=== PATIENT | male | born 1935 | race Caucasian/White ===

== ENCOUNTER 2021-09-20 16:35 | Inpatient (IN) | payer OTHER ==
[~2021-09-20] VITALS: Ht 167.6 cm; Wt 83.9 kg
--- NOTE | 2021-09-20 16:49 | NUR ---
DEVONTE 89 FROM HOME C/O WITNESSED SYNCOPAL EPISODE. PER EMS NO HEAD INJUR "HE WAS JUST EATING SALAD THEN PASSED OUT WITNESSED BY THE SON" [id number]. THE PATIENT IS ALERT AND ORIENTED X4. IN ROOM AIR AND DENIES SOB. RESPIRATION REGULAR AND UNLABORED. ATTACHED TO THE MONITOR. WARM BLANKET PROVIDED FOR COMFORT. WILL CONTINUE TO MONITOR THE PATIENT.
[2021-09-20] MEDS ORDERED: IV NS 0.9% 500 ML BAG IV ONE (17:00)
[2021-09-20 17:12] LABS: BASOPHILS # (AUTO) 0.1 K/uL (0.0-0.2); BASOPHILS % (AUTO) 0.7 % (0.0-2.0); EOSINOPHILS % (AUTO) 2.1 % (0.0-6.0); HEMATOCRIT 33 % (39-51); HEMOGLOBIN 11.1 g/dL (13.5-17.5); LYMPHOCYTES # (AUTO) 2.2 K/uL (0.8-4.8); MEAN CORPUSCULAR HGB CONC 33 g/dl (31.0-36.0); MEAN CORPUSCULAR VOLUME 90 fL (80-96); MONOCYTES # (AUTO) 0.9 K/uL (0.1-1.30); MONOCYTES % (AUTO) 10.2 % (2.0-12.0); NEUTROPHILS # (AUTO) 5.5 K/uL (1.8-8.9); PLATELET COUNT (AUTO) 184 K/uL (150-450); RED BLOOD CELL COUNT(AUTO) 3.72 MIL/uL (4.5-6.0); WHITE BLOOD COUNT (AUTO) 8.9 K/uL (4.3-11.0)
--- NOTE | 2021-09-20 17:15 | NUR ---
THE PATIENT IS TAKEN TO CT [facility]IA [facility]
--- NOTE | 2021-09-20 17:18 | NUR ---
MOVE SHEET SUBMITTED AND CALLED FOR TELE BED.
--- NOTE | 2021-09-20 17:20 | NUR ---
THE PATIENT IS BACK FROM [facility]IA [facility]
[2021-09-20 17:31] LABS: CALCIUM, SERUM 8.9 mg/dL (8.5-10.1); CARBON DIOXIDE 20 mmol/L (21-32); CHLORIDE 104 mmol/L (98-107); CREATININE 1.9 mg/dL (0.6-1.3); GLUCOSE 103 mg/dL (74-106); POTASSIUM 4.8 mmol/L (3.5-5.1); SODIUM SERUM 135 mmol/L (136-145); UREA NITROGEN, BLOOD 75 mg/dL (7-18)
[2021-09-20 17:37] LABS: ALANINE AMINOTRANSFERASE 29 U/L (12-78); ALBUMIN 3.7 g/dL (3.4-5.0); ALKALINE PHOSPHATASE 74 U/L (46-116); ASPARTATE AMINOTRANSFERASE 40 U/L (15-37); BILIRUBIN,DIRECT 0.1 mg/dL (0.0-0.2); BILIRUBIN,TOTAL 0.4 mg/dL (0.2-1.0); TOTAL PROTEIN, SERUM 6.7 g/dL (6.4-8.2)
--- NOTE | 2021-09-20 18:03 | NUR ---
COVID ANTIGEN SWAB DONE AND SENT TO THE LAB
--- NOTE | 2021-09-20 18:31 | NUR ---
[facility] CALLED INSIDE TESTER PAGED.
[2021-09-20] MEDS ORDERED: ONDANSETRON HCL/PF 4 MG/2 ML VIAL IVP PRN (19:00)
[2021-09-20] MEDS ORDERED: ACETAMINOPHEN 325 MG TABLET PO PRN (19:00)
[2021-09-20] MEDS ORDERED: MORPHINE SULFATE INJ 2 MG/ML DISP.SYRIN IV PRN (19:00)
[2021-09-20] MEDS ORDERED: LABETALOL 20 MG/4 ML VIAL IV PRN (19:00)
--- NOTE | 2021-09-20 19:09 | NUR ---
US TECH AT PT'S BEDSIDE
--- NOTE | 2021-09-20 19:16 | NUR ---
REPORT GIVEN TO NURSE ADAME FOR MIGUEL
[2021-09-20] MEDS ORDERED: DEXTROSE 50%-WATER 50 ML DISP.SYRIN IV PRN (19:30)
[2021-09-20] MEDS ORDERED: INSULIN REGULAR, HUMAN 100 UNIT/ML 3 ML VIAL SQ PRN (19:30)
--- NOTE | 2021-09-20 19:54 | NUR ---
ASSIGNED TO 306-1
[2021-09-20 20:00] VITALS: BP 147/69
--- NOTE | 2021-09-20 20:02 | NUR ---
REPORT GIVEN TO FRANCISCO Bonner RN FOR MIGUEL
[2021-09-20] MEDS ORDERED: SITA100T PO (20:15)
[2021-09-20] MEDS ORDERED: GLIP10TA21 PO (20:15)
[2021-09-20] MEDS ORDERED: RAMI10CA69 PO (20:15)
[2021-09-20] MEDS ORDERED: METO25TA4 PO (20:15)
[2021-09-20] MEDS ORDERED: HYDR25TA4 PO (20:15)
[2021-09-20] MEDS ORDERED: METF-442 PO (20:15)
--- NOTE | 2021-09-20 20:36 | NUR ---
PT TRANSFERRED TO 3W VIA ACLS PROTOCOL. VSS. PT TOLERATED TRANSFER WELL.
[2021-09-20] MEDS: BLOOD SUGAR DIAGNOSTIC 1 EACH STRIP IN SCH (21:14)
[2021-09-20] MEDS: METOPROLOL TARTRATE 25 MG TABLET PO SCH (21:14)
[2021-09-20] MEDS: IV NS 0.9% 1,000 ML IV SCH (21:14)
[2021-09-20] MEDS: HEPARIN SODIUM, PORCINE 5000 UNITS/1 ML VIAL SQ SCH (21:15)
[2021-09-20] MEDS ORDERED: ATORVASTATIN 10 MG TABLET PO SCH (22:00)
[2021-09-21] VITALS: BP 105/51
[2021-09-21 04:00] VITALS: BP 111/50
[2021-09-21] MEDS: BLOOD SUGAR DIAGNOSTIC 1 EACH STRIP IN SCH ×2 (06:08→12:16)
--- NOTE | 2021-09-21 06:11 | NUR ---
VARNISH FILTERER NOTES AWAKE & RESPONSIVE. NOT IN ANY DISTRESS. NO SOB NOTED. DENIES ANY PAIN OR DISCOMFORT AT THIS TIME. ON TELE SB @ 58 WITH IV-HL PATENT & INTACT. MONITORED ACCORDINGLY. CALL LIGHT WITHIN REACH. BED IN LOWEST POSITION. SR UP X 3 WITH BED ALARM ON FOR SAFETY. WILL ENDORSE TO NEXT SHIFT.
[2021-09-21 06:40] LABS: BASOPHILS % (AUTO) 0.3 % (0.0-2.0); EOSINOPHILS % (AUTO) 3.4 % (0.0-6.0); HEMATOCRIT 30 % (39-51); HEMOGLOBIN 10.3 g/dL (13.5-17.5); LYMPHOCYTES # (AUTO) 1.6 K/uL (0.8-4.8); LYMPHOCYTES % (AUTO) 24.3 % (20.0-44.0); MEAN CORPUSCULAR HGB CONC 34 g/dl (31.0-36.0); MEAN CORPUSCULAR VOLUME 89 fL (80-96); MONOCYTES # (AUTO) 0.7 K/uL (0.1-1.30); MONOCYTES % (AUTO) 10.4 % (2.0-12.0); NEUTROPHILS # (AUTO) 4.2 K/uL (1.8-8.9); NEUTROPHILS % (AUTO) 61.6 % (43.0-81.0); PLATELET COUNT (AUTO) 170 K/uL (150-450); WHITE BLOOD COUNT (AUTO) 6.8 K/uL (4.3-11.0)
[2021-09-21 06:56] LABS: ALANINE AMINOTRANSFERASE 26 U/L (12-78); ALBUMIN 3.1 g/dL (3.4-5.0); ALKALINE PHOSPHATASE 63 U/L (46-116); ASPARTATE AMINOTRANSFERASE 33 U/L (15-37); BILIRUBIN,TOTAL 0.3 mg/dL (0.2-1.0); CALCIUM, SERUM 8.6 mg/dL (8.5-10.1); CARBON DIOXIDE 22 mmol/L (21-32); CHLORIDE 108 mmol/L (98-107); CREATININE 1.4 mg/dL (0.6-1.3); GLUCOSE 123 mg/dL (74-106); MAGNESIUM 1.7 mg/dL (1.8-2.4); POTASSIUM 4.1 mmol/L (3.5-5.1); SODIUM SERUM 141 mmol/L (136-145); UREA NITROGEN, BLOOD 60 mg/dL (7-18)
--- NOTE | 2021-09-21 07:52 | NUR ---
RN OPENING NOTE PATIENT RECEIVED IN BED, AO X 4, IN NO ACUTE DISTRESS NOTED. RESPIRATORY EVEN AND UNLABORED ON ROOM. SKIN IS WARM TO TOUCH, KEEP CLEAN/DRY, INTACT IV SITE. KEPT ELEVATED HOB FOR ENSURE AIRWAY AND ASPIRATION PRECAUTION, ALSO LOWEST POSITION OF THE BED, S/R UP X 2 FOR SAFETY, ALL SAFETY PRECAUTION APPLIED. CALL LIGHT WITHIN REACH, WILL CONTINUE TO MONITOR.
[2021-09-21 08:00] VITALS: BP 114/45
[2021-09-21] MEDS: IV NS 0.9% 1,000 ML IV SCH (08:47)
[2021-09-21 08:51] LABS: THYROID STIMULATING HORMONE 2.892 uIU/mL (0.358-3.74)
[2021-09-21] MEDS: METOPROLOL TARTRATE 25 MG TABLET PO SCH (08:55)
[2021-09-21] MEDS: HEPARIN SODIUM, PORCINE 5000 UNITS/1 ML VIAL SQ SCH (08:56)
[2021-09-21] MEDS ORDERED: glipiZIDE XL 10 MG TAB.OSM.24 PO SCH (09:00)
[2021-09-21] MEDS ORDERED: ASPIRIN EC 81 MG TABLET.DR PO SCH (09:00)
--- NOTE | 2021-09-21 09:40 | NUR ---
WOUND CARE CONSULT: PT PRESENTS WITH SOME DRY SCRATCHES/ABRASIONS ON ARMS AND LEGS, PRESENT ON ADMISSION.PT REFUSED TO TURN FOR FULL SKIN ASSESSMENT. CURRENT TAHMINA SCORE IS 20. WILL SEE PRN.
[2021-09-21] MEDS ORDERED: MAGNESIUM OXIDE 400 MG TABLET PO ONE (10:00)
[2021-09-21 12:00] VITALS: BP_SYST 106; BP_SYST 112; BP_SYST 120; BP_DIAS 49; BP_DIAS 51; BP_DIAS 52
== END 2021-09-21 14:30 | disposition home or self-care (01) | DRG 640 ==
LOC: ER 16:37 → TELE 19:59
PROVIDERS: ADMIT Internal Medicine; ATTEND Internal Medicine
DX: E86.0 Dehydration (principal); N17.0 Acute kidney failure with tubular necrosis; R55 Syncope and collapse; D64.9 Anemia, unspecified; Z79.82 Long term (current) use of aspirin; I25.10 Atherosclerotic heart disease of native coronary artery without angina pectoris; E11.22 Type 2 diabetes mellitus with diabetic chronic kidney disease; E78.5 Hyperlipidemia, unspecified; E83.42 Hypomagnesemia; Z95.1 Presence of aortocoronary bypass graft; N18.9 Chronic kidney disease, unspecified; Z95.2 Presence of prosthetic heart valve; E83.9 Disorder of mineral metabolism, unspecified; I13.10 Hypertensive heart and chronic kidney disease without heart failure, with stage 1 through stage 4 chronic kidney disease, or unspecified chronic kidney disease; Z79.84 Long term (current) use of oral hypoglycemic drugs; Z20.822 Contact with and (suspected) exposure to COVID-19
CPT/HCPCS: 36415; 70450-TC; 71045-TC; 80048-TC; 80053-TC; 80061-TC; 80076-TC; 82728-TC; 82962-TC; 83540-TC; 83605-TC; 83735-TC; 83880; 84100-TC; 84439-TC; 84443-TC; 84484-TC; 85025-TC; 85730-TC; 87081-TC; 93307-TC; 93880-TC; C9803; G0378; J1644; J1815; J3490; J7030; J7040